=== PATIENT | female | born 1960 | race Hispanic/Latino ===

== ENCOUNTER 2017-05-27 12:07 | Inpatient (IN) | payer MEDICARE ==
[~2017-05-27] VITALS: Ht 160 cm; Wt 86.6 kg
[~2017-05-27 12:07] MED LIST: AMLO10TA2 PO; BISA5TAB12 PO; CIPR-245 PO; CYCL10TA7 PO; ESOM40CA PO; HYDR-4068 PO; ISOS30TA6 PO; LINA290C PO; METF10004 PO; METF500T6 PO; METO5TAB2 PO; METR500T4 PO; NITR0.4T SL; PROP80TA4 PO; VIT D PO
[2017-05-27 12:40] LABS: APPEARANCE,URINE Clear (CLEAR); BASOPHILS % (AUTO) 0.8 % (0.0-5.0); BILIRUBIN,URINE Negative (NEGATIVE); COLOR,URINE Yellow (YELLOW); EOSINOPHILS % (AUTO) 3.2 % (0.0-8.0); GLUCOSE, URINE (UA) >=1000 mg/dL (NEGATIVE); HEMATOCRIT 39.7 % (36-48); KETONES,URINE Negative (NEGATIVE); LEUKOCYTE ESTERASE ,URINE Negative (NEGATIVE); LYMPHOCYTES % (AUTO) 23.9 % (21.0-51.0); MEAN CORPUSCULAR HEMOGLOBIN 29.1 pg (27.0-33.0); MEAN CORPUSCULAR HGB CONC 33.8 g/dL (32.0-36.0); MONOCYTES % (AUTO) 4.5 % (3.0-13.0); NEUTROPHILS % (AUTO) 67.6 % (40.0-77.0); NITRATE,URINE Negative (NEGATIVE); OCCULT BLOOD,URINE Negative (NEGATIVE); PLATELET COUNT (AUTO) 219 K/uL (130-400); PROTEIN,URINE Negative (NEGATIVE); RED BLOOD CELL COUNT(AUTO) 4.62 MIL/uL (4.00-5.50); RED CELL DISTRIBUTION WIDTH 13.8 % (11.0-15.5)
[2017-05-27 12:53] LABS: BACTERIA,URINE Rare /HPF (None Seen); RBC,URINE 0-1 /HPF (0-1); SQUAMOUS EPITHELIAL CELL,UR Rare /HPF (0-2); WBC,URINE 0-1 /HPF (0-1)
[2017-05-27 13:16] LABS: ALBUMIN 3.9 g/dL (3.5-5.0); BILIRUBIN,TOTAL 0.5 mg/dL (0.2-1.0); CREATINE KINASE MB 0.9 ng/mL (0.5-3.6); CREATININE 0.8 mg/dL (0.5-1.5); POTASSIUM 4.3 mmol/L (3.5-5.1); TOTAL PROTEIN, SERUM 7.2 g/dL (6.0-8.3)
[2017-05-27] MEDS ORDERED: SODIUM CHLORIDE 0.9% 1000ML 1,000 ML IV ONE (13:44)
[2017-05-27] MEDS ORDERED: ACETAMINOPHEN EXTRA STRENGTH 500 MG TABLET ONE (13:45)
[2017-05-27] MEDS ORDERED: INSULIN HUMULIN R 100 UNIT/ML 3ML ONE (13:46)
[2017-05-27] MEDS ORDERED: IOPAMIDOL-370 75 ML VIAL IV ONE (14:42)
[2017-05-27] MEDS ORDERED: ASPIRIN 81MG TAB.CHEW PO SCH (17:15)
[2017-05-27] MEDS ORDERED: CLOPIDOGREL BISULFATE 75 MG TAB PO SCH (17:15)
[2017-05-27 17:31] VITALS: BP 134/67
[2017-05-27] MEDS ORDERED: ACETAMINOPHEN-CODEINE 300/30MG TAB ONE (17:36)
[2017-05-27] MEDS ORDERED: ACETAMINOPHEN-CODEINE 300/30MG TAB PO PRN (17:45)
[2017-05-27] MEDS ORDERED: DEXTROSE 50%-WATER 50 ML DISP.SYRIN IV PRN (17:45)
[2017-05-27] MEDS ORDERED: GLUCAGON 1MG KIT 1 MG ML IM PRN (17:45)
[2017-05-27 19:19] VITALS: BP 132/60
[2017-05-27] MEDS ORDERED: HYDROMORPHONE HCL 2 MG/ML VIAL IVP PRN (21:00)
[2017-05-27] MEDS: ATORVASTATIN CALCIUM 40 MG TABLET PO SCH (21:37)
[2017-05-27] MEDS: HYDROMORPHONE HCL 0.5 MG/0.5 ML ML IVP PRN (21:38)
[2017-05-27] MEDS: INSULIN R PO SS1 SQ SCH (21:44)
[2017-05-27 23:25] VITALS: BP 141/73
[2017-05-28 03:14] VITALS: BP 108/58
[2017-05-28] MEDS: HYDROMORPHONE HCL 0.5 MG/0.5 ML ML IVP PRN ×3 (04:10→22:35)
[2017-05-28 04:35] LABS: HEMATOCRIT 36.3 % (36-48); MEAN CORPUSCULAR HEMOGLOBIN 29.2 pg (27.0-33.0); MEAN CORPUSCULAR HGB CONC 33.9 g/dL (32.0-36.0); PLATELET COUNT (AUTO) 184 K/uL (130-400); RED BLOOD CELL COUNT(AUTO) 4.22 MIL/uL (4.00-5.50); RED CELL DISTRIBUTION WIDTH 13.9 % (11.0-15.5); WHITE BLOOD COUNT (AUTO) 8.5 K/uL (4.8-10.8)
[2017-05-28 04:52] LABS: ALBUMIN 3.1 g/dL (3.5-5.0); BILIRUBIN,TOTAL 0.3 mg/dL (0.2-1.0); CREATININE 0.7 mg/dL (0.5-1.5); POTASSIUM 3.6 mmol/L (3.5-5.1); TOTAL PROTEIN, SERUM 6.5 g/dL (6.0-8.3)
[2017-05-28 04:54] LABS: HEMOGLOBIN A1C 10.8 % (4.0-6.0)
[2017-05-28 05:08] LABS: INR 0.97 (0.85-1.15); PROTHROMBIN TIME 10.2 SEC (9.6-11.6)
[2017-05-28 05:13] LABS: BAND NEUTROPHILS % (MANUAL) 1 % (0-2); EOSINOPHILS % (MANUAL) 3 % (1-6); LYMPHOCYTES % (MANUAL) 32 % (22-44); MAN.DIFF COMMENT-IMPRESSION MANUAL DIFFERENTIAL; MONOCYTES % (MANUAL) 7 % (2-9); PLATELET MORPHOLOGY COMMENT ADEQUATE; REACTIVE LYMPHOCYTES 4 % (0-0); SEGMENTED NEUTROPHILS % 53 % (40-70)
[2017-05-28] MEDS: INSULIN R PO SS1 SQ SCH ×4 (06:29→21:55)
[2017-05-28] MEDS ORDERED: ONDANSETRON HCL MDV 20ML 2 MG/ML VIAL ONE (07:01)
[2017-05-28 07:47] VITALS: BP 136/62
[2017-05-28] MEDS ORDERED: LIDOCAINE HCL-MPF 1% 2ML VIAL IVP PRN (08:15)
[2017-05-28] MEDS ORDERED: POTASSIUM CHLORIDE 20MEQ/100ML 100 ML IV PRN (08:15)
[2017-05-28] MEDS ORDERED: POTASSIUM CHLORIDE 20 MEQ ERTAB PO PRN (08:15)
[2017-05-28] MEDS ORDERED: POTASSIUM CHLORIDE 10% ELIXIR 20 MEQ/15 ML UDCUP PO PRN (08:15)
[2017-05-28] MEDS: CLOPIDOGREL BISULFATE 75 MG TAB PO SCH (10:37)
[2017-05-28] MEDS: ASPIRIN 81MG TAB.CHEW PO SCH (10:37)
[2017-05-28] MEDS ORDERED: FENO145T37 PO (11:16)
[2017-05-28] MEDS ORDERED: INSU100I21 SQ (11:16)
[2017-05-28] MEDS ORDERED: SERT25TA5 PO (11:16)
[2017-05-28] MEDS ORDERED: [UNRECOGNIZED DRUG - OTHER] PO (11:16)
[2017-05-28 11:40] VITALS: BP 139/69
[2017-05-28] MEDS: ONDANSETRON HCL MDV 20ML 2 MG/ML VIAL IVP PRN ×2 (12:36→21:58)
[2017-05-28 16:19] VITALS: BP 132/78
[2017-05-28] MEDS ORDERED: INSULIN GLARGINE 100 UNITS/ML 10 ML VIAL SQ ONE (18:00)
[2017-05-28 19:37] VITALS: BP 125/58
[2017-05-28] MEDS ORDERED: INSULIN GLARGINE 100 UNITS/ML 10 ML VIAL SQ SCH (21:00)
[2017-05-28] MEDS: ATORVASTATIN CALCIUM 40 MG TABLET PO SCH (21:58)
[2017-05-28 23:24] VITALS: BP 145/77
[2017-05-29 03:44] VITALS: BP 127/68
[2017-05-29] MEDS: INSULIN R PO SS1 SQ SCH ×3 (05:49→17:28)
[2017-05-29] MEDS ORDERED: INSULIN GLARGINE 100 UNITS/ML 10 ML VIAL SQ SCH (07:30)
[2017-05-29 07:54] VITALS: BP 130/74
[2017-05-29] MEDS: CLOPIDOGREL BISULFATE 75 MG TAB PO SCH (08:03)
[2017-05-29] MEDS: ASPIRIN 81MG TAB.CHEW PO SCH (08:03)
[2017-05-29 11:26] VITALS: BP 141/69
[2017-05-29 16:00] VITALS: BP 159/79
[2017-05-29] MEDS ORDERED: INSULIN GLARGINE 100 UNITS/ML 10 ML VIAL SQ ONE (18:30)
== END 2017-05-29 19:15 | disposition home or self-care (01) | DRG 638 ==
LOC: EDH 12:07 → EDHIP 16:05 → 2DH 17:09
PROVIDERS: ADMIT Internal Medicine Nephrology; ATTEND Internal Medicine Nephrology
DX: E11.65 Type 2 diabetes mellitus with hyperglycemia (principal); I47.1 Supraventricular tachycardia; E78.5 Hyperlipidemia, unspecified; F41.1 Generalized anxiety disorder; I10 Essential (primary) hypertension; Z96.653 Presence of artificial knee joint, bilateral; G89.29 Other chronic pain; E66.9 Obesity, unspecified; J32.9 Chronic sinusitis, unspecified; Z82.49 Family history of ischemic heart disease and other diseases of the circulatory system; Z83.3 Family history of diabetes mellitus; Z90.710 Acquired absence of both cervix and uterus; Z68.33 Body mass index [BMI] 33.0-33.9, adult; Z90.49 Acquired absence of other specified parts of digestive tract; Z88.8 Allergy status to other drugs, medicaments and biological substances
CPT/HCPCS: 36415; 70450; 70496; 70498; 70551; 71045; 72125; 72141; 80053; 80061; 81001; 82550; 82553; 82947; 82948; 83036; 84484; 85025; 85610; 85730; 92610; 93005; 93306; 93880; 99291; J1170; J1815; J7030; Q9967

== ENCOUNTER → 2018-06-21 | Outpatient (CLI) | payer MEDICARE ==
[~2018-06-21] MED LIST changes: -AMLO10TA2 PO; +AMLO10TA7 PO; -BISA5TAB12 PO; -CIPR-245 PO; +FENO145T37 PO; -HYDR-4068 PO; +INSU100I21 SQ; -LINA290C PO; +METF-444 PO; -METF10004 PO; -METF500T6 PO; -METO5TAB2 PO; -METR500T4 PO; +SERT25TA5 PO; -VIT D PO; +[UNRECOGNIZED DRUG - OTHER] PO
== END | disposition home or self-care (01) ==
LOC: SHCH 10:24
PROVIDERS: ATTEND Internal Medicine Cardiovascular Disease
DX: I87.2 Venous insufficiency (chronic) (peripheral) (principal)
CPT/HCPCS: 93970

== ENCOUNTER → 2018-09-02 | Outpatient (CLI) | payer MEDICARE | END | disposition home or self-care (01) | LOC: SHCH 09:02 | PROVIDERS: ATTEND Internal Medicine Cardiovascular Disease | DX: Z09 Encounter for follow-up examination after completed treatment for conditions other than malignant neoplasm (principal); I82.812 Embolism and thrombosis of superficial veins of left lower extremity | CPT/HCPCS: 93971 ==

== ENCOUNTER 2018-10-23 09:37 | Day surgery (SDC) | payer MEDICARE ==
[2018-10-21 10:13] LABS: BASOPHILS % (AUTO) 0.6 % (0.0-5.0); EOSINOPHILS % (AUTO) 2.4 % (0.0-8.0); HEMATOCRIT 40.7 % (36-48); LYMPHOCYTES % (AUTO) 28.4 % (21.0-51.0); MEAN CORPUSCULAR HEMOGLOBIN 28.7 pg (27.0-33.0); MEAN CORPUSCULAR HGB CONC 33.4 g/dL (32.0-36.0); MEAN CORPUSCULAR VOLUME 85.9 fL (79-99); NEUTROPHILS % (AUTO) 64.6 % (40.0-77.0); PLATELET COUNT (AUTO) 195 K/uL (130-400); RED BLOOD CELL COUNT(AUTO) 4.74 MIL/uL (4.00-5.50); RED CELL DISTRIBUTION WIDTH 14.2 % (11.0-15.5); WHITE BLOOD COUNT (AUTO) 6.8 K/uL (4.8-10.8)
[2018-10-21 10:17] LABS: APPEARANCE,URINE Clear (CLEAR); BILIRUBIN,URINE Negative (NEGATIVE); COLOR,URINE Yellow (YELLOW); GLUCOSE, URINE (UA) >=1000 mg/dL (NEGATIVE); KETONES,URINE Negative (NEGATIVE); LEUKOCYTE ESTERASE ,URINE Small (NEGATIVE); NITRATE,URINE Negative (NEGATIVE); OCCULT BLOOD,URINE Nonhemolyzed Trace (NEGATIVE); PROTEIN,URINE Negative (NEGATIVE)
[2018-10-21 10:25] VITALS: BP 138/72
[2018-10-21 10:25] LABS: INR 0.98 (0.85-1.15); PARTIAL THROMBOPLASTIN TIME 27.1 SEC (26.3-35.5); PROTHROMBIN TIME 10.3 SEC (9.6-11.6)
[2018-10-21 10:26] LABS: BACTERIA,URINE Rare /HPF (None Seen); RBC,URINE 0-1 /HPF (0-1); SQUAMOUS EPITHELIAL CELL,UR Few /HPF (0-2)
[2018-10-21 10:26] LABS: CREATININE 0.7 mg/dL (0.5-1.5); POTASSIUM 4.4 mmol/L (3.5-5.1)
--- NOTE | 2018-10-21 11:23 | NUR ---
GLUCOSE INFORMED NOELLE HUNG OF ABNORMAL GLUCOSE. PT STATES DID NOT TAKE ANY OF HER METFORMIN OR LEVEMIR THIS AM. PER NOELLE HUNG. PT TO REPORT TO HER PCP, DR. GILMAN FOR FURTER EVALUATION. INSTRUCTED PT. VERBALIZED UNDERSTANDING. PT TO REPORT OVER THERE.
--- NOTE | 2018-10-22 10:03 | NUR ---
GLUCOSE PT ON PHONE. STATES SHE WENT TO DR. GILMAN OFFICE YESTERDAY. WAS INSTRUCTED TO INJECT HER LEVEMIR AND RECHECK HER GLUCOSE AND MONITOR HER DIET.
--- NOTE | 2018-10-22 10:15 | NUR ---
UA INFORMED NOELLE HUNG OF ABNORMAL UA. NO ORDERS RECEIVED. PROCEED WITH PLANNED PROCEDURE.
[2018-10-23] VITALS (7 sets, daily range): BP systolic 114–134; BP diastolic 60–68
[~2018-10-23] VITALS: Ht 162.6 cm; Wt 79.7 kg
[~2018-10-23 09:37] MED LIST changes: +AEC81 PO; +BISACODYL PO; -CYCL10TA7 PO; +LIFI1DRO OU; +PHARMACY COMMUNICATION MISC SCH; +SODIUM CHLORIDE 0.9% 500ML 500 ML IV SCH; +VITAMIN B12 PO; -[UNRECOGNIZED DRUG - OTHER] PO
[2018-10-23] MEDS ORDERED: SODIUM CHLORIDE 0.9% 1000ML 1,000 ML IV ONE (09:51)
--- NOTE | 2018-10-23 10:10 | NUR ---
PATIENT ARRIVED PATIENT ARRIVED TO DAY PATIENT ALONE, NO FAMILY WILL BE PRESENT WITH PATIENT. PER PATIENT SHE WILL BE CALLING HER SISTER (SHIREEN CHOUDHURY) TO COME PICK HER UP AFTER THE PROCEDURE. PATIENT DENIES ANY PAIN AT THIS TIME, VITAL SIGNS STABLE, RESPIRATIONS UNLABORED. PROCEDURE VERIFIED AND CONFIRMED WITH PATIENT. HOSPITAL ROUTINE EXPLAINED TO PATIENT AND PATIENT VERBALIZED UNDERSTANDING.
--- NOTE | 2018-10-23 15:45 | NUR ---
PATIENT TRANSFERRED PATIENT TAKEN TO [facility] [employer] VIA BED BY BLANCA AQUINO RN AND PATRICIA ALEXANDRE RN. NO FAMILY PRESENT IN ROOM.
[2018-10-23] MEDS ORDERED: VERAPAMIL HCL 2.5 MG/ML VIAL ONE (15:47)
[2018-10-23] MEDS ORDERED: NITROGLYCERIN 5 MG/ML 10 ML VIAL IV ONE (15:47)
[2018-10-23] MEDS ORDERED: HEPARIN SODIUM 1000UNIT/ML 10ML VIAL ONE (15:47)
[2018-10-23] MEDS ORDERED: IOHEXOL-350 50ML VIAL IV ONE (15:47)
[2018-10-23] MEDS ORDERED: IOHEXOL 350 MG/ML 100ML INFUS..BTL IV ONE (15:47)
[2018-10-23] MEDS ORDERED: LIDOCAINE HCL 2% 20ML ONE ×2 (15:48→16:31)
[2018-10-23] MEDS ORDERED: MIDAZOLAM HCL 1 MG/ML 2ML VIAL ONE ×2 (16:05→16:32)
[2018-10-23] MEDS ORDERED: FENTANYL CITRATE PF 50 MCG/1 ML 2ML VIAL ONE (16:05)
[2018-10-23] MEDS ORDERED: SODIUM CHLORIDE 0.9% 1000ML 1,000 ML IV SCH (16:51)
[2018-10-23] MEDS ORDERED: GLUCAGON 1MG KIT 1 MG ML IM PRN (17:00)
[2018-10-23] MEDS ORDERED: DEXTROSE 50%-WATER 50 ML DISP.SYRIN IV PRN (17:00)
[2018-10-23] MEDS ORDERED: NITROGLYCERIN 0.4 MG SL TAB SL PRN (17:00)
[2018-10-23] MEDS ORDERED: METOPROLOL TARTRATE 1 MG/ML 5ML VIAL IV PRN (17:00)
--- NOTE | 2018-10-23 17:35 | NUR ---
PATIENT RETURNED PATIENT BROUGHT BACK TO DAY PATIENT VIA BED BY ANA M GRANT. PATIENT [id number], RESPIRTIONS UNLABORED, VITAL SIGNS STABLE, DENIES ANY PAIN AT THIS TIME. DSTAT TO RIGHT GROIN IS DRY AND INTACT, AREA IS SOFT AND NONTENDER. TRBAND TO RIGHT WRIST IN PLACE, NO BLEEDING OR DRAINAGE NOTED. RADIAL PULSES PALPABLE BILATERALLY.
[2018-10-23] MEDS ORDERED: INSULIN HUMULIN R 100 UNIT/ML 3ML ONE (18:30)
--- NOTE | 2018-10-23 18:35 | NUR ---
TR BAND ASSESSMENT 2ML AIR REMOVED FROM TR BAND USING SYRINGE AT BEDSIDE. PATIENT TOLERATED WELL, NO BLEEDING NOTED AND RADIAL PULSES PRESENT BILATERALLY.
--- NOTE | 2018-10-23 18:50 | NUR ---
DISCHARGE INSTRUCTIONS GIVEN TO PATIENT AND INSTRUCTIONS PROVIDED VIA HANDOUT. ALL QUESTIONS/CONCERNS ADDRESSED. PATIENT VERBALIZED UNDERSTANDING. Addendum: 10/23/18 at 2115 by KATTY SANCHES RN RN INSTRUCTIONS GIVEN AT 2049
--- NOTE | 2018-10-23 18:55 | NUR ---
TR BAND 2ML AIR REMOVED FROM TR BAND USING SYRINGE AT BEDSIDE. PATIENT TOLERATED WELL, NO BLEEDING NOTED AND RADIAL PULSES PRESENT.
--- NOTE | 2018-10-23 19:00 | NUR ---
PATIENT DISCHARGED FROM FACILITY AND TAKEN VIA WHEELCHAIR TO PRIVATE VEHICLE DRIVEN BY FAMILY MEMBER ([employer]) Addendum: 10/23/18 at 2116 by KATTY SANCHES RN RN PATIENT DISCHARGED FROM FACILITY AT 2100
--- NOTE | 2018-10-23 19:15 | NUR ---
TR BAND 2ML AIR REMOVED FROM TR BAND USING SYRINGE AT BEDSIDE. PATIENT TOLERATED WELL, NO BLEEDING NOTED AND RADIAL PULSES PRESENT.
--- NOTE | 2018-10-23 19:35 | NUR ---
TR BAND 2ML AIR REMOVED FROM TR BAND USING SYRINGE AT BEDSIDE. PATIENT TOLERATED WELL, NO BLEEDING NOTED AND RADIAL PULSES PRESENT.
--- NOTE | 2018-10-23 19:55 | NUR ---
TR BAND 2ML AIR REMOVED FROM TR BAND USING SYRINGE AT BEDSIDE. PATIENT TOLERATED WELL, NO BLEEDING NOTED AND RADIAL PULSES PRESENT.
--- NOTE | 2018-10-23 20:15 | NUR ---
TR BAND 2ML AIR REMOVED FROM TR BAND USING SYRINGE AT BEDSIDE. PATIENT TOLERATED WELL, NO BLEEDING NOTED AND RADIAL PULSES PRESENT.
--- NOTE | 2018-10-23 20:30 | NUR ---
TR BAND 2ML AIR REMOVED FROM TR BAND USING SYRINGE AT BEDSIDE. PATIENT TOLERATED WELL, NO BLEEDING NOTED AND RADIAL PULSES PRESENT. ALL AIR REMOVED AND TR BAND REMOVED FROM PATIENT. COVERED WITH STERILE GAUZE AND BANDAID APPLIED. NO BLEEDING OR DRAINAGE NOTED. PATIENT TOLERATED WELL. RADIAL PULSES PRESENT.
[2018-10-23] MEDS ORDERED: INSULIN HUMULIN R 100 UNIT/ML 3ML SQ SCH (21:00)
== END 2018-10-23 21:00 | disposition home or self-care (01) ==
LOC: DAH 09:37
PROVIDERS: ATTEND Internal Medicine Cardiovascular Disease
DX: I25.118 Atherosclerotic heart disease of native coronary artery with other forms of angina pectoris (principal); E78.5 Hyperlipidemia, unspecified; E66.9 Obesity, unspecified; I11.9 Hypertensive heart disease without heart failure; E11.51 Type 2 diabetes mellitus with diabetic peripheral angiopathy without gangrene; Z88.8 Allergy status to other drugs, medicaments and biological substances; Z79.84 Long term (current) use of oral hypoglycemic drugs; Z79.899 Other long term (current) drug therapy; Z96.653 Presence of artificial knee joint, bilateral; Z98.890 Other specified postprocedural states; Z82.49 Family history of ischemic heart disease and other diseases of the circulatory system; Z79.4 Long term (current) use of insulin; Z79.82 Long term (current) use of aspirin; Z83.3 Family history of diabetes mellitus; Z68.30 Body mass index [BMI] 30.0-30.9, adult; Z87.891 Personal history of nicotine dependence
CPT/HCPCS: 36415; 71045; 80048; 81001; 82948; 85025; 85610; 85730; 93005; 93458; 99156; 99157; A4606; C1769; C1894; J1644; J1815; J2250; J3010; J3490; J7030; Q9967

== ENCOUNTER → 2019-01-27 | Outpatient (CLI) | payer MEDICARE ==
[~2019-01-27] MED LIST changes: -PHARMACY COMMUNICATION MISC SCH; -SODIUM CHLORIDE 0.9% 500ML 500 ML IV SCH
== END | disposition home or self-care (01) ==
LOC: SHCH 08:05
PROVIDERS: ATTEND Internal Medicine Cardiovascular Disease
DX: I82.462 Acute embolism and thrombosis of left calf muscular vein (principal); Z09 Encounter for follow-up examination after completed treatment for conditions other than malignant neoplasm
CPT/HCPCS: 93971

== ENCOUNTER → 2022-02-27 | Outpatient (CLI) | payer MEDICARE ==
[~2022-02-27] MED LIST changes: +AMLO-258 PO; -AMLO10TA7 PO; +FENO145T26 PO; -FENO145T37 PO; -ISOS30TA6 PO; +ISOS30TA92 PO; +SERT-438 PO; -SERT25TA5 PO
== END | disposition home or self-care (01) ==
LOC: SHCH 13:43
PROVIDERS: ATTEND Internal Medicine Cardiovascular Disease
DX: I87.2 Venous insufficiency (chronic) (peripheral) (principal)
CPT/HCPCS: 93970

== ENCOUNTER → 2022-12-06 | Outpatient (CLI) | payer MEDICARE ==
[~2022-12-06] MED LIST changes: -INSU100I21 SQ; +INSU100I22 SQ
== END | disposition home or self-care (01) ==
LOC: SHCH 12:35
PROVIDERS: ATTEND Internal Medicine Cardiovascular Disease
DX: I87.2 Venous insufficiency (chronic) (peripheral) (principal); I87.1 Compression of vein; I73.9 Peripheral vascular disease, unspecified
CPT/HCPCS: 93925; 93970

== ENCOUNTER → 2023-07-20 | Outpatient (CLI) | payer MEDICARE | END | disposition home or self-care (01) | LOC: LAB 11:55 | PROVIDERS: ATTEND Internal Medicine Cardiovascular Disease | DX: R06.02 Shortness of breath (principal) | CPT/HCPCS: 36415; 85378 ==

== ENCOUNTER → 2023-08-29 | Outpatient (CLI) | payer MEDICARE ==
[~2023-08-29] MED LIST changes: +IOHEXOL 350 MG/ML 100ML INFUS..BTL IV ONE; +METOPROLOL TARTRATE 1 MG/ML 5ML VIAL IV ONE
== END | disposition home or self-care (01) ==
LOC: RAH 09:43
PROVIDERS: ATTEND Internal Medicine Cardiovascular Disease
DX: I25.10 Atherosclerotic heart disease of native coronary artery without angina pectoris (principal); R06.09 Other forms of dyspnea; M47.816 Spondylosis without myelopathy or radiculopathy, lumbar region
CPT/HCPCS: 75574; J3490; Q9967

== ENCOUNTER → 2023-09-11 | Outpatient (CLI) | payer MEDICARE ==
[~2023-09-11] MED LIST changes: -IOHEXOL 350 MG/ML 100ML INFUS..BTL IV ONE; -METOPROLOL TARTRATE 1 MG/ML 5ML VIAL IV ONE
== END | disposition home or self-care (01) ==
LOC: SHCH 07:59
PROVIDERS: ATTEND Internal Medicine Cardiovascular Disease
DX: I20.0 Unstable angina (principal)
CPT/HCPCS: 93306